=== PATIENT | male | born 1970 | race Caucasian/White ===

== ENCOUNTER 2018-06-05 21:41 | Emergency (ER) | payer BC ==
--- NOTE | 2018-06-05 22:36 | EDM.PDOC ---
ED HPI GENERAL MEDICAL PROBLEM - General Chief Complaint: Upper Extremity Injury/Pain Stated Complaint: ARM PAIN Time Seen by Provider: 06/05/18 21:53 Source of Information: Reports: Patient, Family History Limitations: Reports: No Limitations - History of Present Illness INITIAL COMMENTS - FREE TEXT/NARRATIVE: This is a 48-year-old male. 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 He is not really able to flex or lift that forearm due to the pain in his left bicep. He denies any other injuries denies any shoulder pain is just all at the antecubital area of his left elbow. He states he is not able to supinate his left hand due to severe bicep pain. He denies any other acute symptoms. Left Upper Arm Pain Score (Numeric/FACES): 3 - Related Data Allergies Allergy/AdvReac Type Severity Reaction Status Date / Time No Known Allergies Allergy Verified 06/05/18 21:53 Home Meds: Home Meds Aspirin 81 mg PO DAILY 06/05/18 [History] Citalopram [Citalopram HBr] 20 mg PO DAILY 06/05/18 [History] Fenofibric Acid (Choline) [Fenofibric Acid] 135 mg PO DAILY 06/05/18 [History] Fluticasone Propionate [Flonase Allergy Relief] 1 spray NS DAILY 06/05/18 [ History] Magnesium Oxide [Magnesium] 400 mg PO DAILY 06/05/18 [History] amLODIPine Besylate/Benazepril [Amlodipine-Benazepril 5-20 MG] 1 each PO DAILY 06/05/18 [History] Past Medical History Cardiovascular History: Reports: High Cholesterol, Hypertension - Past Surgical History HEENT Surgical History: Reports: Oral Surgery Social & Family History - Tobacco Use Smoking Status *Q: Never Smoker - Caffeine Use Caffeine Use: Reports: Tea - Recreational Drug Use Recreational Drug Use: No Review of Systems - Review of Systems Review Of Systems: See Below Constitutional: Denies: Fever Eyes: Reports: No Symptoms Ears: Reports: No Symptoms Nose: Reports: No Symptoms Mouth/Throat: Reports: No Symptoms Respiratory: Reports: No Symptoms Cardiovascular: Reports: No Symptoms GI/Abdominal: Reports: No Symptoms Genitourinary: Reports: No Symptoms Musculoskeletal: Reports: Other (As per history of present illness) Skin: Reports: No Symptoms Neurological: Reports: No Symptoms Psychiatric: Reports: No Symptoms ED EXAM, GENERAL - Physical Exam Exam: See Below Exam Limited By: No Limitations General Appearance: Alert, WD/WN, No Apparent Distress Eye Exam: Bilateral Eye: Normal Inspection Ears: Normal External Exam Nose: Normal Inspection Throat/Mouth: Normal Inspection, Normal Lips, Normal Voice, No Airway Compromise Head: Normocephalic Neck: Supple Respiratory/Chest: No Respiratory Distress Back Exam: Full Range of Motion Extremities: Other (The left biceps distally is very tender on palpation and may be a slight amount of bruising started in the antecubital area, palpation of the antecubital area reveals some mild tenderness with the distal bicep tendon should be there seems to be a slight absence, the biceps itself is slightly retracted compared to his right bicep, I'm not certain whether this is a complete tear or just a partial tear of the distal biceps tendon, he is not able to flex that left forearm or supinate his left hand due to pain in the bicep.) Neurological: Alert, Oriented Psychiatric: Normal Affect, Normal Mood Skin Exam: Warm, Dry Course - Vital Signs Last Recorded V/S: Last Vital Signs Temp 98.6 F 06/05/18 21:51 Pulse 58 L 06/05/18 21:51 Resp 16 06/05/18 21:51 BP 121/73 06/05/18 21:51 Pulse Ox 97 06/05/18 21:51 - Orders/Labs/Meds Orders: Active Orders 24 hr Category Date Time Status Communication Order [RC] STAT Care 06/05/18 22:30 Ordered Departure - Departure Time of Disposition: 22:33 Disposition: Home, Self-Care 01 Condition: Good Clinical Impression: Strain of left biceps muscle Qualifiers: Encounter type: initial encounter Qualified Code(s): S46.212A - Strain of muscle, fascia and tendon of other parts of biceps, left arm, initial encounter Rupture of distal biceps tendon Qualifiers: Encounter type: initial encounter Laterality: left Qualified Code(s): S46.212A - Strain of muscle, fascia and tendon of other parts of biceps, left arm, initial encounter - Discharge Information *PRESCRIPTION DRUG MONITORING PROGRAM REVIEWED*: Not Applicable *COPY OF PRESCRIPTION DRUG MONITORING REPORT IN PATIENT LAURI: Not Applicable Referrals: Any Morales NP [Primary Care Provider] - Kyree Lopes MD [Physician] - Additional Instructions: Wear the sling as much as possible but also spend time outside the sling to make sure the left elbow does not get stiff, expect to see some bruising in that distal bicep area over the next 2-3 days, ice the area down as much as you can on and off, take some ibuprofen or Aleve as needed for the soreness, call Dr. Villanueva's office on Friday for an appointment to be seen, return to the ER if needed - My Orders Last 24 Hours: My Active Orders 06/05/18 22:30 Communication Order [RC] STAT - Assessment/Plan Last 24 Hours: My Active Orders 06/05/18 22:30 Communication Order [RC] STAT
== END 2018-06-05 22:46 | disposition home or self-care (01) ==
LOC: JD.ED 21:41
DX: S46.212A Strain of muscle, fascia and tendon of other parts of biceps, left arm, initial encounter (principal); I10 Essential (primary) hypertension; Z79.82 Long term (current) use of aspirin; Z79.899 Other long term (current) drug therapy; X50.0XXA Overexertion from strenuous movement or load, initial encounter
CPT/HCPCS: 99283

== ENCOUNTER 2018-06-29 08:03 | Day surgery (SDC) | payer BC ==
[~2018-06-29 08:03] MED LIST: EPINEPHrine 1 MG/ML SDV ONE; Lactated Ringers 1,000 ML IV SCH; Lidocaine 1% 4 ML ONE; Lidocaine 1%/Sod Bicarbonate in NS 8.4% 1 ML Syringe IDERM PRN; Ropivacaine 0.5% 5 MG/ML 30 ML SDV ONE; Sodium Chloride 0.9% 10 ML Syringe FLUSH PRN
[2018-06-29] MEDS ORDERED: fentaNYL 100 MCG/2 ML SDV ONE ×2 (08:23→09:51)
[2018-06-29] MEDS ORDERED: Midazolam 1 MG/ML 2 ML SDV ONE (08:23)
[2018-06-29] MEDS ORDERED: Propofol 200 MG/20 ML SDV ONE ×2 (08:23→09:32)
[2018-06-29] MEDS ORDERED: Dexamethasone 4 MG/ML 5 ML MDV ONE (08:24)
[2018-06-29] MEDS ORDERED: Ondansetron 4 MG/2 ML SDV ONE (08:24)
[2018-06-29] MEDS ORDERED: Succinylcholine/Normal Saline 100 MG/5 ML Syringe ONE (08:24)
[2018-06-29] MEDS ORDERED: Bupivacaine 0.25% 10 ML SDV ONE (08:30)
--- NOTE | 2018-06-29 09:10 | PCM.PREANE ---
Preanesthetic Assessment - Procedure Proposed Procedure: Left biceps tendon repair - Anesthesia/Transfusion/Family Hx Anesthesia History: Prior Anesthesia Without Reaction Family History of Anesthesia Reaction: No Transfusion History: No Prior Transfusion(s) - Review of Systems General: No Symptoms Pulmonary: Other (OSCAR with CPAP) Cardiovascular: Other (HTN, hyperlipidemia ) Gastrointestinal: Other (OCC GERD- none now ) Neurological: No Symptoms Other: Reports: Depression, Anxiety - Physical Assessment NPO Status Date: 06/28/18 NPO Status Time: 21:00 O2 Sat by Pulse Oximetry: 99 Respiratory Rate: 16 Vital Signs: Last Vital Signs Temp 36.0 C 06/29/18 08:10 Pulse 68 06/29/18 08:10 Resp 16 06/29/18 08:10 BP 123/76 06/29/18 08:10 Pulse Ox 99 06/29/18 08:10 Height: 1.8 m Weight: 147.418 kg ASA Class: 2 Mental Status: Alert & Oriented x3 Airway Class: Mallampati = 3 (large tongue) Dentition: Reports: Normal Dentition Thyro-Mental Finger Breadths: 3 Mouth Opening Finger Breadths: 3 ROM/Head Extension: Full Lungs: Clear to Auscultation, Normal Respiratory Effort Cardiovascular: Regular Rate, Regular Rhythm - Allergies Allergies/Adverse Reactions: Allergies Allergy/AdvReac Type Severity Reaction Status Date / Time No Known Allergies Allergy Verified 06/26/18 10:50 - Blood Blood Available: No Product(s) Available: None - Anesthesia Plan Pre-Op Medication Ordered: None - Acknowledgements Anesthesia Type Planned: General Anesthesia, Regional Block (left interscalene nerve block for post operative pain relief ) Pt an Appropriate Candidate for the Planned Anesthesia: Yes Alternatives and Risks of Anesthesia Discussed w Pt/Guardian: Yes Pt/Guardian Understands and Agrees with Anesthesia Plan: Yes PreAnesthesia Questionnaire HEENT History: Reports: Other (See Below) Other HEENT History: pharyngitis, sinus infection, wears glasses Cardiovascular History: Reports: High Cholesterol, Hypertension Respiratory History: Reports: Sleep Apnea Gastrointestinal History: Reports: None Genitourinary History: Reports: None 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: None Other Musculoskeletal History: biceps tendon tear Neurological History: Reports: None Psychiatric History: Reports: Anxiety, Depression Endocrine/Metabolic History: Reports: Obesity/BMI 30+ Hematologic History: Reports: None Immunologic History: Reports: None Oncologic (Cancer) History: Reports: None Dermatologic History: Reports: None - Past Surgical History Head Surgeries/Procedures: Reports: None HEENT Surgical History: Reports: Oral Surgery Cardiovascular Surgical History: Reports: None Respiratory Surgical History: Reports: None GI Surgical History: Reports: None Female Surgical History: Reports: None Male Surgical History: Reports: None Endocrine Surgical History: Reports: None Neurological Surgical History: Reports: None Musculoskeletal Surgical History: Reports: None Oncologic Surgical History: Reports: None - SUBSTANCE USE Smoking Status *Q: Current Every Day Smoker Tobacco Use Within Last Twelve Months: Snuff/Dip Recreational Drug Use History: No - HOME MEDS Home Medications: Home Meds Aspirin 81 mg PO DAILY 06/05/18 [History] Citalopram [Citalopram HBr] 20 mg PO DAILY 06/05/18 [History] Fenofibric Acid (Choline) [Fenofibric Acid] 135 mg PO DAILY 06/05/18 [History] amLODIPine Besylate/Benazepril [Amlodipine-Benazepril 5-20 MG] 1 each PO DAILY 06/05/18 [History] Lorcaserin HCl [Belviq Xr] 20 mg PO DAILY 06/26/18 [History] Niacin 500 mg PO DAILY 06/26/18 [History] Acetaminophen/HYDROcodone [[place] 325-5 MG] 1 - 2 tab PO Q6H PRN #30 tablet 06/29 [Rx] Cyclobenzaprine [Flexeril] 10 mg PO Q8H PRN #30 tab 06/29/18 [Rx] - CURRENT (IN HOUSE) MEDS Current Meds: Current Medications Lactated Ringer's (Ringers, Lactated) 1,000 mls @ 125 mls/hr IV ASDIRECTED SHEILA Stop: 06/29/18 23:00 Lidocaine/Sodium Bicarbonate (Buffered Lidocaine 1% In Ns 8.4%) 0.25 ml IDERM ONETIME PRN PRN Reason: Prior to IV Start Stop: 06/29/18 18:00 Sodium Chloride (Saline Flush) 10 ml FLUSH ASDIRECTED PRN PRN Reason: Keep Vein Open Stop: 06/29/18 18:00 Discontinued Medications Bupivacaine HCl (Sensorcaine-Mpf 0.25%) Confirm Administered Dose 20 ml .ROUTE .STK-MED ONE Stop: 09/17/18 08:31 Dexamethasone (Dexamethasone) Confirm Administered Dose 20 mg .ROUTE .STK-MED ONE Stop: 06/29/18 08:25 Epinephrine HCl (Adrenalin) Confirm Administered Dose 1 mg .ROUTE .STK-MED ONE Stop: 06/29/18 07:47 Fentanyl (Sublimaze) Confirm Administered Dose 100 mcg .ROUTE .STK-MED ONE Stop: 06/29/18 08:24 Lidocaine HCl (Xylocaine-Mpf 1%) Confirm Administered Dose 4 mls @ as directed .ROUTE .STK-MED ONE Stop: 06/29/18 07:47 Midazolam HCl (Versed 1 Mg/Ml) Confirm Administered Dose 2 mg .ROUTE .STK-MED ONE Stop: 06/29/18 08:24 Ondansetron HCl (Zofran) Confirm Administered Dose 4 mg .ROUTE .STK-MED ONE Stop: 06/29/18 08:25 Propofol (Diprivan 20 Ml) Confirm Administered Dose 200 mg .ROUTE .STK-MED ONE Stop: 06/29/18 08:24 Ropivacaine (Naropin 0.5%) Confirm Administered Dose 30 ml .ROUTE .STK-MED ONE Stop: 06/29/18 07:48 Succinylcholine Chloride (Succinylcholine In Ns Pf) Confirm Administered Dose 100 mg .ROUTE .STK-MED ONE Stop: 06/29/18 08:25
--- NOTE | 2018-06-29 09:13 | PCM.SN ---
- Free Text/Narrative Note: Date: 06/29/2018 Start: 0845 Time Out: 0848 Stop: 854 Surgical Procedure: Left biceps tendon repair Diagnosis: Left biceps tendon rupture Current Procedure: Left interscalene block under US guidance for postoperative pain control Patient chart reviewed, risk/benefits discussed with patient, consent obtained. Patient positioned supine, monitors/alarms on, oxygen placed via nasal cannula at 2 LPM. IV sedation administered: Versed 2mg IV Fentanyl 100 mcg IV Left shoulder prepped with chloraprep x1. Sterile drapes placed with aseptic technique. Under US guidance, left subclavian artery visualized along with the brachial plexus. Plexus followed cephalad up to C6 cricoid level, and area localized with 2mls of 1% lidocaine. 22gauge 4 inch stimiplex needle inserted under US and guided to brachial plexus C5-C6 trunks with 0.44mV with stimulation of biceps noted. Stimulation abolished at 0.2mVs. 1ml of Normal Saline injected with loss of stimulation up to 0.7mA. Incremental injection of 5mls with negative aspiration prior to each injection of 0.5% ropivacaine with 1:200,000 epinephrine. Total volume=30mls. Refer to nurses notes for vital signs. Dr. Emery present for supervision. Nate Powell, NAPPING MACHINE OPERATOR
[2018-06-29] MEDS ORDERED: Ketamine 500 mg/10 ML MDV ONE (09:43)
[2018-06-29] MEDS ORDERED: Neostigmine Methylsulfate 1 MG/ML 5 ML Syringe ONE (10:32)
[2018-06-29] MEDS ORDERED: Albuterol 6.7 GM Inhaler INH ONE (11:16)
--- NOTE | 2018-06-29 11:34 | PCM.POSTAN ---
POST ANESTHESIA ASSESSMENT - MENTAL STATUS Mental Status: Alert, Oriented - VITAL SIGNS Pulse Rate: 90 SaO2: 91 Resp Rate: 15 Blood Pressure: 128/79 Temperature: 36.7 C - RESPIRATORY Respiratory Status: Respiratory Rate WNL, Airway Patent, O2 Saturation Stable, Supplemental Oxygen - CARDIOVASCULAR CV Status: Pulse Rate WNL, Blood Pressure Stable - GASTROINTESTINAL GI Status: No Symptoms - PAIN Pain Score: 0 - POST OP HYDRATION Hydration Status: Adequate & Stable
--- NOTE | 2018-06-29 11:34 | CR ---
Left elbow: Four fluoroscopic spot views were obtained utilizing C-arm device. Study shows biceps tendon repair with [address] on the final films within the radial tuberosity. Fluoroscopy time given as 28.3 seconds. Impression: 1. Operative study as noted above. Diagnostic code #2
[2018-06-29] MEDS ORDERED: Meperidine 50 MG/ML Vial IVPUSH PRN (11:35)
[2018-06-29] MEDS ORDERED: Ondansetron 4 MG/2 ML SDV IVPUSH PRN (11:35)
[2018-06-29] MEDS ORDERED: diphenhydrAMINE 50 MG/ML SDV IVPUSH PRN (11:35)
--- NOTE | 2018-07-07 14:32 | PCM.OPNOTE ---
- General Post-Op/Procedure Note Date of Surgery/Procedure: 06/25/18 Operative Procedure(s): left distal biceps tendon repair Pre Op Diagnosis: left distal biceps tendon rupture Post-Op Diagnosis: Same Anesthesia Technique: General LMA, Local Primary Surgeon: Kyree Lopes Anesthesia Provider: Nate Powell Piano Sounding Board Matcher: Marina Farley in mLs: 10 Complications: None Condition: Good
--- NOTE | 2018-07-08 08:19 | OR ---
DATE OF OPERATION: 06/29/2018 SURGEON: Kyree Lopes MD OPERATION PERFORMED: Left distal biceps tendon repair. PREOPERATIVE DIAGNOSIS: Left distal biceps tendon rupture. POSTOPERATIVE DIAGNOSIS: Left distal biceps tendon rupture. ANESTHESIA TECHNIQUE: General LMA with local. ANESTHESIA PROVIDER: Nate Powell. INCLUSION SPECIALIST: Marina Farley PA-C. ESTIMATED BLOOD LOSS: 10 mL. COMPLICATIONS: None. CONDITION: Stable. DESCRIPTION OF PROCEDURE: Patient was identified in the preop holding area. Proper site was marked and identified by the surgeon. The patient was taken back to the OR. After adequate anesthesia, the patient's left upper extremity had a nonsterile tourniquet applied. It was then sterilely prepped and draped in the usual sterile fashion. OR time-out was performed. The patient received 2 g of IV Ancef. The left upper extremity was exsanguinated, tourniquet was insufflated to 225 mmHg. A standard transverse incision was done. Blunt dissection was taken down to the biceps tendon, it was found noted to be adhesed to the surrounding tissue with just a small part still attached. I was able to easily free it up with just my finger. Once this was identified, the distal end biceps tendon was identified and it was debrided back. There was noted to be a large amount of fatty tissue, and I did have to shorten it significantly to get back to good healthy tissue. At this time, it was whipstitched with #2 FiberLoop so that it would fit through an 8 mm guide. At this time, attention was turned to the radius. The Hohmann retractors were placed on the radioulnar aspect of the proximal radius, and the radial tuberosity was identified and a guide pin was placed in a center-center position, angled 30 degrees ulnarly and distally. At this time, it was placed bicortically and the acorn reamer was then used just through the near cortex only. At this time, the biceps tendon was loaded with the EndoButton and the EndoButton was placed through the far cortex and it was tightened. The biceps tendon was found to sink into the previous drill hole, and the anchor was placed. At this time, when bringing through range of motion, anchor did pull out and biceps tendon became a little bit unwound secondary to it pulling out of the bone tunnel. At this time, I did cut all the sutures and we cleaned up the biceps tendon again to back to even better tendon. #2 Fiberloop was then again used and a second Endobutton was placed. It was again placed through the far cortex and the tendon was cinched down into the previous drill hole in the radial tuberosity. At this time, it was found to have better fixation and a knot was placed over the top once it had been cinched into the previous drill hole, and the 8 mm interference screw was then placed. It was found to have adequate fixation with good tension on the biceps tendon. Adequate saline was irrigated through the wound. 3-0 Vicryl was used for closure of the skin, and Monocryl with Dermabond was used for closure of the skin. The patient at this time, was placed in a posterior slab splint, sent to PACU in stable condition. GREGORY /[id number]
== END 2018-06-29 13:43 | disposition home or self-care (01) ==
LOC: JD.SDS 08:03
PROVIDERS: ATTEND Orthopaedic Surgery
DX: S46.212A Strain of muscle, fascia and tendon of other parts of biceps, left arm, initial encounter (principal); E78.5 Hyperlipidemia, unspecified; I10 Essential (primary) hypertension; J02.9 Acute pharyngitis, unspecified; K21.9 Gastro-esophageal reflux disease without esophagitis; G47.33 Obstructive sleep apnea (adult) (pediatric); Z99.89 Dependence on other enabling machines and devices; E78.00 Pure hypercholesterolemia, unspecified; E66.9 Obesity, unspecified; Z68.42 Body mass index [BMI] 45.0-49.9, adult; F41.8 Other specified anxiety disorders; F17.290 Nicotine dependence, other tobacco product, uncomplicated; Z79.82 Long term (current) use of aspirin; Z79.899 Other long term (current) drug therapy
CPT/HCPCS: 24342; 64415; 76000; A9270; C1776; J0171; J0330; J1100; J2250; J2405; J2704; J2710; J2795; J3010; J3490; J7120; 01710; J2001

== ENCOUNTER 2020-11-07 07:04 | Day surgery (SDC) | payer BC ==
[~2020-11-07 07:04] MED LIST changes: -EPINEPHrine 1 MG/ML SDV ONE; -Lidocaine 1% 4 ML ONE; -Ropivacaine 0.5% 5 MG/ML 30 ML SDV ONE
--- NOTE | 2020-11-07 07:14 | PCM.PREANE ---
Preanesthetic Assessment - Anesthesia/Transfusion/Family Hx Anesthesia History: Prior Anesthesia Reaction (pt states has trouble breathing) Family History of Anesthesia Reaction: No Transfusion History: No Prior Transfusion(s) Intubation History: Unknown - Review of Systems General: No Symptoms Pulmonary: No Symptoms Cardiovascular: No Symptoms Gastrointestinal: No Symptoms Neurological: No Symptoms Other: Reports: None - Physical Assessment NPO Status Date: 11/07/20 NPO Status Time: 04:00 ASA Class: 2 Mental Status: Alert & Oriented x3 Airway Class: Mallampati = 3 Dentition: Reports: Normal Dentition Lungs: Clear to Auscultation, Normal Respiratory Effort Cardiovascular: Regular Rate, Regular Rhythm - Allergies Allergies/Adverse Reactions: Allergies Allergy/AdvReac Type Severity Reaction Status Date / Time No Known Allergies Allergy Verified 11/06/20 13:40 - Acknowledgements Anesthesia Type Planned: MAC Pt an Appropriate Candidate for the Planned Anesthesia: Yes Alternatives and Risks of Anesthesia Discussed w Pt/Guardian: Yes Pt/Guardian Understands and Agrees with Anesthesia Plan: Yes PreAnesthesia Questionnaire HEENT History: Reports: Impaired Vision, Other (See Below) Other HEENT History: pharyngitis, sinus infection, wears glasses Cardiovascular History: Reports: High Cholesterol, Hypertension Respiratory History: Reports: Sleep Apnea (CPAP) Gastrointestinal History: Reports: Hemorrhoids Genitourinary History: Reports: Other (See Below) Other Genitourinary History: frequency 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 Musculoskeletal History: Reports: Other (See Below) Other Musculoskeletal History: biceps tendon tear with repair, restless leg syndrome Neurological History: Reports: None Psychiatric History: Reports: Anxiety, Depression Endocrine/Metabolic History: Reports: Hypothyroidism, Obesity/BMI 30+ Hematologic History: Reports: Anemia, Iron Deficiency Immunologic History: Reports: None Oncologic (Cancer) History: Reports: None Dermatologic History: Reports: None - Infectious Disease History Infectious Disease History: Reports: None - Past Surgical History Head Surgeries/Procedures: Reports: None HEENT Surgical History: Reports: Oral Surgery Cardiovascular Surgical History: Reports: None Respiratory Surgical History: Reports: None GI Surgical History: Reports: None Female Surgical History: Reports: None Male Surgical History: Reports: None Endocrine Surgical History: Reports: None Neurological Surgical History: Reports: None Musculoskeletal Surgical History: Reports: None, Other (See Below) ((L) bicep tendon) Oncologic Surgical History: Reports: None Dermatological Surgical History: Reports: None - SUBSTANCE USE Tobacco Use Status *Q: Never Tobacco User Tobacco Use Within Last Twelve Months: Snuff/Dip Recreational Drug Use History: No - HOME MEDS Home Medications: Home Meds Citalopram [Citalopram HBr] 20 mg PO DAILY 06/05/18 [History] Fenofibric Acid (Choline) [Fenofibric Acid] 135 mg PO DAILY 06/05/18 [History] amLODIPine Besylate/Benazepril [Amlodipine-Benazepril 5-20 MG] 1 each PO DAILY 06/05/18 [History] Niacin 500 mg PO DAILY 06/26/18 [History] Ferrous Sulfate [Iron] 325 mg PO ASDIRECTED 11/06/20 [History] Fluticasone Propionate [Flonase] 1 dose NASBOTH BID 11/06/20 [History] Pramipexole [Mirapex] 0.5 mg PO BEDTIME 11/06/20 [History] Tamsulosin [Flomax] 0.4 mg PO DAILY 11/06/20 [History] - CURRENT (IN HOUSE) MEDS Current Meds: Current Medications Lactated Ringer's (Ringers, Lactated) 1,000 mls @ 125 mls/hr IV ASDIRECTED SHEILA Stop: 11/07/20 23:00 Lidocaine/Sodium Bicarbonate (Buffered Lidocaine 1% In Ns 8.4%) 0.25 ml IDERM ONETIME PRN PRN Reason: Prior to IV Start Stop: 11/07/20 18:00 Sodium Chloride (Saline Flush) 10 ml FLUSH ASDIRECTED PRN PRN Reason: Keep Vein Open Stop: 11/07/20 18:00
[2020-11-07] MEDS ORDERED: Midazolam 1 MG/ML 2 ML SDV ONE (07:28)
[2020-11-07] MEDS ORDERED: Propofol 200 MG/20 ML SDV ONE ×2 (07:28)
[2020-11-07] MEDS ORDERED: Lidocaine 1% 4 ML ONE (07:28)
[2020-11-07] MEDS ORDERED: fentaNYL 100 MCG/2 ML SDV ONE (07:29)
--- NOTE | 2020-11-07 08:37 | PCM48HPAN ---
Post Anesthesia Note - EVALUATION WITHIN 48HRS OF ANESTHETIC Vital Signs in Normal Range: Yes Patient Participated in Evaluation: Yes Respiratory Function Stable: Yes Airway Patent: Yes Cardiovascular Function Stable: Yes Hydration Status Stable: Yes Pain Control Satisfactory: Yes Nausea and Vomiting Control Satisfactory: Yes Mental Status Recovered: Yes Vital Signs: Last Vital Signs Temp 36.4 C 11/07/20 07:05 Pulse 64 11/07/20 07:05 Resp 16 11/07/20 07:05 BP 115/71 11/07/20 07:05 Pulse Ox 97 11/07/20 07:05
--- NOTE | 2020-11-07 08:38 | PCM.PRNOTE ---
- Free Text/Narrative Note: Date: 11/07/2020 Procedure: diagnostic colonoscopy Indication: rectal bleeding Endoscopist: Buddy Sahu Findings: moderate size internal and external hemorrhoids. Fair prep. Challenging scope due to patient habitus and airway obstruction related to obesity, making sustained gaseous distention of the colon a challenge. Cecum visualized. Detailed Report: The patient was taken to the endoscopy suite and placed in left lateral decubitus position. Timeout was performed, and monitored anesthesia care was initiated. Visual inspection of the anus, prominent external hemorrhoids were noted, with what felt like spastic sphincter. Digital rectal exam was unremarkable. The colonoscope was inserted and advanced all the way to the cecum. This was challenging due to redundancy and the patient's ongoing sleep apnea throughout the procedure. The cecum was reached and the ileocecal valve was visualized. Prep was fair. It was difficult to maintain gaseous distention of the colon due to the patient's obstructed airway. No polyps were identified, but procedure was considered inadequate for colon cancer screening. No diverticular disease was appreciated. On retroflexion within the rectum, internal hemorrhoids were appreciated. Air was suctioned from the colon prior to withdrawal of the scope. The patient tolerated the procedure well.
== END 2020-11-07 09:04 | disposition home or self-care (01) ==
LOC: JD.SDS 07:04
PROVIDERS: ATTEND Surgery
DX: K62.5 Hemorrhage of anus and rectum (principal); K64.8 Other hemorrhoids; K64.4 Residual hemorrhoidal skin tags; E78.5 Hyperlipidemia, unspecified; I10 Essential (primary) hypertension; E03.9 Hypothyroidism, unspecified; E66.01 Morbid (severe) obesity due to excess calories; G47.33 Obstructive sleep apnea (adult) (pediatric); F17.290 Nicotine dependence, other tobacco product, uncomplicated; D50.9 Iron deficiency anemia, unspecified; Z79.899 Other long term (current) drug therapy; Z98.890 Other specified postprocedural states; Z68.42 Body mass index [BMI] 45.0-49.9, adult
CPT/HCPCS: 00811; J2001; J2250; J2704; J3010; J7120